=== PATIENT | female | born 1995 | race Caucasian/White ===

== ENCOUNTER 2018-11-24 21:43 | Emergency (ER) | payer MEDICAID ==
[~2018-11-24] VITALS: Ht 154.9 cm; Wt 57.0 kg
[~2018-11-24 21:43] MED LIST: CITA20TA19 PO; FERR-63 PO; IBUP-1636 PO; MULT-1146 PO
[2018-11-24 22:33] LABS: CLARITY URINE CLOUDY (CLEAR); COLOR URINE YELLOW (YELLOW); KETONES URINE NEGATIVE (NEGATIVE); LEUKOCYTE ESTERASE URINE NEGATIVE (NEGATIVE); NITRITE URINE NEGATIVE (NEGATIVE); OCCULT BLOOD URINE 2+ (NEGATIVE); PROTEIN URINE NEGATIVE (NEGATIVE); SPECIFIC GRAVITY URINE 1.007 (1.005-1.030); UROBILINOGEN URINE 0.2 E.U./dL (0.2-1.0)
[2018-11-25] MEDS ORDERED: KETOROLAC 30MG/ML VIAL IV STA (02:19)
[2018-11-25] MEDS ORDERED: SODIUM CHLORIDE 0.9% 1,000 ML IV ONE (02:19)
[2018-11-25 02:38] LABS: CHLORIDE 108 mEq/L (98-107)
[2018-11-25 02:58] LABS: BASOPHILS % 0.5 % (0.0-2.0); EOSINOPHILS % 2.9 % (0.0-5.0); HEMOGLOBIN. 12.5 g/dL (12.0-16.0); LYMPHOCYTES % 26.8 % (20.0-50.0); MEAN CORPUSCULAR HEMOGLOBIN 32.5 pg (28.0-32.0); MEAN CORPUSCULAR VOLUME 93.2 fL (81.0-99.0); MEAN PLATELET VOLUME 10.1 fl (7.4-10.4); NEUTROPHILS % 65.8 % (40.0-76.0); PLATELET 241 x1000/uL (130-400); RED BLOOD CELL COUNT 3.86 mill/uL (4.2-5.4)
[2018-11-25 04:00] VITALS: BP 135/75
== END 2018-11-25 04:34 | disposition home or self-care (01) ==
LOC: ER 21:43
DX: N83.209 Unspecified ovarian cyst, unspecified side (principal); Z88.1 Allergy status to other antibiotic agents
CPT/HCPCS: 36415; 76830; 76856; 80053; 81003; 81025; 85025; 99284; J1885; J7030

== ENCOUNTER 2020-04-18 08:01 | Emergency (ER) | payer MEDICAID, OTHER ==
[~2020-04-18] VITALS: Ht 167.6 cm; Wt 60.0 kg
[2020-04-18 08:15] VITALS: BP 132/94
== END 2020-04-18 11:20 | disposition left against medical advice (07) ==
LOC: ER 08:20
DX: U07.1 COVID-19 (principal); B34.9 Viral infection, unspecified; Z79.899 Other long term (current) drug therapy; Z88.1 Allergy status to other antibiotic agents
CPT/HCPCS: 99281

== ENCOUNTER 2020-06-09 16:31 | Emergency (ER) | payer MEDICAID ==
[~2020-06-09] VITALS: Ht 154.9 cm; Wt 57.0 kg
[2020-06-09 17:41] LABS: CLARITY URINE CLOUDY (CLEAR); COLOR URINE YELLOW (YELLOW); KETONES URINE NEGATIVE (NEGATIVE); LEUKOCYTE ESTERASE URINE NEGATIVE (NEGATIVE); NITRITE URINE NEGATIVE (NEGATIVE); OCCULT BLOOD URINE 2+ (NEGATIVE); PROTEIN URINE NEGATIVE (NEGATIVE); SPECIFIC GRAVITY URINE 1.016 (1.005-1.030); UROBILINOGEN URINE 0.2 E.U./dL (0.2-1.0)
[2020-06-09 17:58] LABS: *AMPHETAMINES SCREEN URINE NEGATIVE (NEGATIVE); *BARBITURATES SCREEN URINE NEGATIVE (NEGATIVE); *BENZODIAZEPINES SCREEN URINE NEGATIVE (NEGATIVE); *COCAINE SCREEN URINE NEGATIVE (NEGATIVE); METHADONE URINE SCREEN NEGATIVE (NEGATIVE); OPIATES URINE SCREEN NEGATIVE (NEGATIVE)
[2020-06-09 17:59] LABS: CANNABINOID URINE SCREEN NEGATIVE (NEGATIVE); PHENCYCLIDINE URINE SCREEN NEGATIVE (NEGATIVE)
[2020-06-09] MEDS ORDERED: LIDOCAINE HCL/PF 1% 2ML VIAL ONE (18:25)
[2020-06-09] MEDS ORDERED: LORAZEPAM 1MG TABLET PO ONE (18:30)
[2020-06-09 19:07] LABS: BG BASE EXCESS -3.6 mmol/L (-2.0-2.0); BG CARBOXYHEMOGLOBIN 0.3 % (0.5-1.5); BG DEOXYHEMOGLOBIN 2.9 % (0.0-5.0); BG FRACTION INSPIRED OXYGEN 21; BG METHEMOGLOBIN 0.2 % (0.0-1.5); BG OXYGEN SATURATION 97.1 % (92.0-98.5); BG OXYHEMOGLOBIN 96.6 % (94.0-97.0); BG PCO2 36.6 mmHg (35.0-45.0); BG PH 7.376 (7.350-7.450); BG SAMPLE SITE LEFT RADIAL; BG TOTAL HEMOGLOBIN 13.4 g/dL (12.0-18.0); BG VENT MODE ROOM AIR
[2020-06-09 19:40] LABS: BASOPHILS % 0.5 % (0.0-2.0); HEMATOCRIT. 36.9 % (36.0-48.0); HEMOGLOBIN. 12.8 g/dL (12.0-16.0); LYMPHOCYTES % 16.6 % (20.0-50.0); MEAN CORPUSCULAR HEMOGLOBIN 32.5 pg (28.0-32.0); MEAN CORPUSCULAR VOLUME 93.9 fL (81.0-99.0); MEAN PLATELET VOLUME 9.8 fl (7.4-10.4); MONOCYTES % 4.1 % (2.0-8.0); NEUTROPHILS % 77.8 % (40.0-76.0); PLATELET 253 x1000/uL (130-400); RED BLOOD CELL COUNT 3.93 mill/uL (4.2-5.4); RED CELL DISTRIBUTION WIDTH 13.6 % (11.6-14.6)
[2020-06-09 19:50] LABS: CHLORIDE 104 mEq/L (98-107)
[2020-06-09 19:52] LABS: PROTHROMBIN TIME 10.5 sec (9.6-11.0)
[2020-06-09 19:54] LABS: ETHANOL BLOOD < 10 mg/dL
[2020-06-09 19:56] LABS: HCG SCREEN NEGATIVE
[2020-06-09] MEDS ORDERED: LORA-249 MT (19:58)
[2020-06-09] MEDS ORDERED: LORA-250 MT (19:58)
[2020-06-09] MEDS ORDERED: DIAZ2TAB3 PO (20:03)
[2020-06-09 20:35] VITALS: BP 135/92
== END 2020-06-09 20:38 | disposition home or self-care (01) ==
LOC: ER 16:31
DX: F41.9 Anxiety disorder, unspecified (principal); F13.10 Sedative, hypnotic or anxiolytic abuse, uncomplicated; I49.9 Cardiac arrhythmia, unspecified; Z88.1 Allergy status to other antibiotic agents; Z98.890 Other specified postprocedural states
CPT/HCPCS: 36415; 36600; 71045; 80053; 80305; 80320; 81003; 81025; 82375; 82805; 84703; 85025; 85610; 93005; 99285; J3490; G0480

== ENCOUNTER 2022-09-03 04:14 | Emergency (ER) | payer MEDICAID ==
[~2022-09-03] VITALS: Ht 154.9 cm; Wt 64.0 kg
[~2022-09-03 04:14] MED LIST changes: +DIAZ2TAB3 PO
[2022-09-03] MEDS ORDERED: IBUPROFEN 600MG TABLET PO STA (05:07)
[2022-09-03 05:43] LABS: CLARITY URINE CLEAR (CLEAR); COLOR URINE YELLOW (YELLOW); KETONES URINE NEGATIVE (NEGATIVE); LEUKOCYTE ESTERASE URINE 3+ (NEGATIVE); NITRITE URINE NEGATIVE (NEGATIVE); OCCULT BLOOD URINE TRACE (NEGATIVE); PH URINE 6.5 (4.5-8.0); PROTEIN URINE TRACE (NEGATIVE); SPECIFIC GRAVITY URINE 1.009 (1.005-1.030); UROBILINOGEN URINE 0.2 E.U./dL (0.2-1.0)
[2022-09-03] MEDS ORDERED: IBUP-2029 MT (06:29)
[2022-09-03] MEDS ORDERED: NITR-87 MT (06:31)
[2022-09-03 07:00] VITALS: BP 129/69
== END 2022-09-03 07:27 | disposition home or self-care (01) ==
LOC: ER 04:14
DX: S09.93XA Unspecified injury of face, initial encounter (principal); R51.9 Headache, unspecified; N39.0 Urinary tract infection, site not specified; Z98.890 Other specified postprocedural states; Y04.0XXA Assault by unarmed brawl or fight, initial encounter; Y93.89 Activity, other specified; Y92.89 Other specified places as the place of occurrence of the external cause; Y99.8 Other external cause status
CPT/HCPCS: 70486; 81003; 81025; 99284